=== PATIENT | female | born 1970 | race Caucasian/White ===

== ENCOUNTER 2016-12-16 19:19 | Emergency (ER) | payer MEDICAID ==
[~2016-12-16] VITALS: Ht 152.4 cm; Wt 63.0 kg
[2016-12-16 21:08] VITALS: BP 143/79
[2016-12-16] MEDS ORDERED: IBUPROFEN 600 MG TABLET PO ONE (21:30)
== END 2016-12-16 21:55 | disposition home or self-care (01) ==
LOC: EMS 19:22
DX: S93.402A Sprain of unspecified ligament of left ankle, initial encounter (principal); X58.XXXA Exposure to other specified factors, initial encounter; Y93.89 Activity, other specified; Y92.89 Other specified places as the place of occurrence of the external cause; Y99.8 Other external cause status
CPT/HCPCS: 99284